=== PATIENT | female | born 1980 | race American Indian/Alaskan Native ===

== ENCOUNTER 2018-03-14 22:29 | Emergency (ER) | payer OTHER, MEDICAID ==
[2018-03-15] MEDS ORDERED: TYLENOL PO ONE (00:28)
[2018-03-15] MEDS ORDERED: TYLENOL ONE (00:32)
--- NOTE | 2018-03-15 01:49 | XRay Report ---
FINAL REPORT EXAM: XR SPINE LUMBOSACRAL 2-3V HISTORY: Lower back pain COMPARISON: None available. FINDINGS: Two views of the lumbar spine obtained. Lumbar vertebral body heights are preserved. Minimal endplate osteophyte throughout the lumbar spine. Disc heights are preserved. Pedicles are intact. IMPRESSION: Lumbar vertebral body heights and disc heights are preserved.
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
[2018-03-15] MEDS ORDERED: MOTRIN PO ONE (04:41)
[2018-03-15 05:00] VITALS: BP 135/84
== END 2018-03-15 04:59 | disposition home or self-care (01) ==
LOC: ED 22:29
DX: S39.012A Strain of muscle, fascia and tendon of lower back, initial encounter (principal); V89.2XXA Person injured in unspecified motor-vehicle accident, traffic, initial encounter; Y93.89 Activity, other specified; Y92.488 Other paved roadways as the place of occurrence of the external cause; Y99.8 Other external cause status
CPT/HCPCS: 72100; 99283